=== PATIENT | female | born 1990 | race Caucasian/White ===

== ENCOUNTER 2019-10-23 13:27 | Outpatient (CLI) | payer OTHER, SELFPAY | END 2019-10-24 11:27 | disposition home or self-care (01) | PROVIDERS: PCP Podiatrist; Referring Provider Podiatrist; Visit Provider Podiatrist | DX: M77.51 Other enthesopathy of right foot and ankle (principal); G57.91 Unspecified mononeuropathy of right lower limb | CPT/HCPCS: 95886; 95911 ==